=== PATIENT | male | born 1960 | race African-American/Black ===

== ENCOUNTER 2018-12-09 22:46 | Inpatient (IN) ==
[2018-12-09] MEDS ORDERED: SODIUM CHLORIDE 0.9% 250 ML IV PRN (22:55)
--- NOTE | 2018-12-09 22:59 | Emergency Department Note ---
ED Provider Note Name: Elissa Ennis Age: 57 M Arrives Via: EMS Informant: Pt, [facility] Info CC: Anemia HPI: 57 male arrives for evaluation of anemia. Patient notes for the last few days dark, sticky, red/black stool. Associated with nothing else. Per care home notes patient with SHOB on exertion though he denies this. Basic labs done at [facility] which revealed severe anemia. He was sent to ED for further evaluation. Denies fevers, chills, weakness, nausea, vomiting, headache, vision changes, lightheadedness, cp, sob, syncope, abdominal pain, back pain, leg swelling nor other symptoms. History of Hep C. Notes anemia last year of uncertain etiology. Is no longer on aspirin. Admits uses MOBIC twice daily for knee/back pain. Takes Blood pressure medication. No trauma, nor injuries. No new medications. Nothing makes better nor worse. Last year had unremarkable Endoscopy per patient. ROS: See above HPI for pertinent positives & negatives. A total of 10 systems reviewed and were otherwise negative. Past Medical History: Hep C, HTN, DLP, Depression, Constipation, GERD, Low Back Pain, Eczema Past Surgical History: Right hand surgery Family History: Denies history of bleeding issues. 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 Home Medications: FiberCon, Cetaphil, Colace, Lexapro, Hydrocholorothiazide, Hydroxyzine, meloxicam, pantoprazole Allergies NKDA Physical: Vitals: BP 158/76, P 85, R 18, O2 100%, Temp 36.8 Exam: GENERAL: Patient is well appearing and in no acute distress. EYES: Pale conjunctiva mild yellowing, No scleral icterus, unremarkable pupils. ENT: Mucous membranes moist, no nasal congestion. NECK: No masses appreciated, no meningismus, trachea is midline. RESPIRATORY: No dyspnea. Clear to auscultation and equal bilaterally. No wheeze, no rhonchi. CARDIOVASCULAR: Regular rate and rhythm. No murmurs, rubs, gallops appreciated. GASTROINTESTINAL: Abdomen soft, non-tender, no peritonitis. Bowel sounds positive. No masses appreciated. BACK: No midline tenderness, no CVA tenderness EXTREMITIES: Normal motion all extremities, no cyanosis, no edema. NEUROLOGIC: Alert and oriented, no acute motor or sensory deficits, no focal weakness, cranial nerves grossly intact. SKIN: Tattoed, No rash, no jaundice, no diaphoresis. ED Course: Prior Medical Record, Triage/Nursing Notes, Medications, Allergies reviewed by Me Vital Signs: reviewed and remarkable for HTN on arrival Labs: Reviewed and remarkable for severe anemia Interventions: saline lock, protonix bolus/gtt, 1 Unit PRBC EKG: Per My Interpretation: Indication Severe Anemia: NSR 74 bpm no ectopy no ischemia. QTC 432. There is no STEMI. No previous for comparison. Blood pressure: Elevated - Referred to Hospitalist Course: Arrived with [facility] guards via EMS, evaluated on arrival, labs ordered, PRBC ordered, patient admitted to Hospitalist Disposition: Hospitalization Differentials: GERD/PUD, Upper GI bleed, Lower GI Bleed, Liver Failure, Bone marrow failure, trauma, amongst other pathologies. Medical Decision Makin yr old male with history of anemia about a year ago thought to be GI related arrives for evaluation of anemia in setting of SOB on exertion. Admits black/bloody stools and with him being on Mobic assume this is Upper Source. Protonix started and given 1 U PRBC after consenting. HgB returned <4 with mild Trop elevation likely secondary to demand ischemia. No evidence STEMI on EKG. No abdominal pain nor TTP. No indication for imaging at this time. Not hypotensive at this time. Vitals stable, if not increasing throughout stay. Hospitalist involved for further management. Impression: Acute Blood Loss Anemia Acute Upper Gastrointestinal Bleeding Elevated Troponin Critical Care Time: I have personally spent greater than 40 minutes of critical care time in the direct management of this patient. Upper GI Bleed with Severe Anemia requiring blood transfusion. This was a life/limb threatening event. This includes time spent evaluating patient, direct bedside care, chart review, placing orders, interpretation of diagnostic studies, discussion with consultants and patient, as well as other required patient management activities. This 40 minutes is in excess of all separately billable procedures. 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 Feels Safe at Home: Yes Smoking Status: Current every day smoker Results & Data Vital Signs Vital Signs - 24 hr 12/09/18 22:49 12/09/18 22:53 12/09/18 23:10 Temperature 36.8 C Temperature Source Oral Sepsis Recent Fever Within 48 Hours No Sepsis Action Taken by Nursing No Action Required Pulse Rate 87 85 75 Pulse Rate from SpO2 Sensor 87 77 Respiratory Rate 21 18 16 Respiratory Effort / Characteristics Non-Labored Spontaneous Respiratory Depth Normal Respiratory Pattern Regular Blood Pressure 158/76 H 158/76 H 164/92 H Blood Pressure Mean 103 103 116 Blood Pressure Position Lying Pulse Oximetry 100 100 100 Oxygen Delivery Method Room Air 12/09/18 23:30 12/10/18 00:55 12/10/18 01:10 Temperature 36.6 C 36.7 C Temperature Source Oral Oral Sepsis Recent Fever Within 48 Hours Sepsis Action Taken by Nursing Pulse Rate 72 72 76 Pulse Rate from SpO2 Sensor 73 Respiratory Rate 16 18 18 Respiratory Effort / Characteristics Respiratory Depth Respiratory Pattern Blood Pressure 174/89 H 188/98 H 176/95 H Blood Pressure Mean 117 128 122 Blood Pressure Position Sitting Sitting Pulse Oximetry 100 100 100 Oxygen Delivery Method 12/10/18 01:25 Temperature 36.7 C Temperature Source Oral Sepsis Recent Fever Within 48 Hours Sepsis Action Taken by Nursing Pulse Rate 71 Pulse Rate from SpO2 Sensor Respiratory Rate 18 Respiratory Effort / Characteristics Respiratory Depth Respiratory Pattern Blood Pressure 189/101 H Blood Pressure Mean 130 Blood Pressure Position Sitting Pulse Oximetry 100 Oxygen Delivery Method Laboratory Data Result diagrams: 12/09/18 23:03 12/09/18 23:03 Lab Results 12/09/18 12/09/18 12/09/18 Range/Units 23:00 23:03 23:03 WBC 5.13 (4.8-10.8) K/uL RBC 2.35 L (4.7-6.1) M/uL Hgb 3.8 L* (14.0-18.0) g/dL Hct 14.5 L* (42-52) % MCV 61.7 L (80-100) fL MCH 16.2 L (25-34) pg MCHC 26.2 L (32-36) g/dL Plt Count 236 (130-400) K/uL Immature Gran % (Auto) 0.8 % Neut % (Auto) 53.8 % Lymph % (Auto) 32.9 % [place] % (Auto) 9.2 % Eos % (Auto) 1.9 % Baso % (Auto) 1.4 % Immature Gran # (Auto) 0.04 H (0.00-0.02) K/uL Neut # (Auto) 2.76 (1.4-6.5) K/uL Lymph # (Auto) 1.69 (1.2-3.4) K/uL [place] # (Auto) 0.47 (0.11-0.59) K/uL Eos # (Auto) 0.10 (0-0.5) K/uL Baso # (Auto) 0.07 (0-0.2) K/uL Absolute Nucleated RBC 0.07 H (0-0) K/uL Nucleated RBC % (auto) 1.4 % Giant Platelets 2+ Hypochromasia Present Poikilocytosis Present Microcytosis Present Target Cells 2+ Tear Drop Cells 1+ PT 11.9 (9.0-12.0) Seconds INR 1.2 H (0.9-1.1) APTT 23.1 (21.0-31.0) Seconds PTT Ratio 0.9 Sodium (136-145) mmol/L Potassium (3.5-5.1) mmol/L Chloride (98-107) mmol/L Carbon Dioxide (21-32) mmol/L Anion Gap (3-11) BUN (7-18) mg/dl Creatinine (0.6-1.4) mg/dl Est Cr Clr Drug Dosing ml/min Est GFR ( Amer) Est GFR (Non-Af Amer) BUN/Creatinine Ratio (10-20) Glucose (70-99) mg/dl Calcium (8.5-10.1) mg/dl Magnesium (1.8-2.4) mg/dl Total Bilirubin (0.2-1) mg/dl Direct Bilirubin (0-0.2) mg/dl AST (15-37) U/L ALT (12-78) U/L Alkaline Phosphatase (45-117) U/L Troponin I (0-0.045) ng/ml Total Protein (6.4-8.2) gm/dl Albumin (3.4-5.0) gm/dl Urine Color Yellow Urine Appearance Clear (Clear) Urine pH 6.0 (4.5-7.5) Ur Specific [place] 1.007 (1.000-1.030) Urine Protein Negative (Negative) Urine Glucose (UA) Negative (Negative) Urine Ketones Negative (Negative) Urine Blood Negative (Negative) Urine Nitrite Negative (Negative) Urine Bilirubin Negative (Negative) Urine Urobilinogen Negative (Negative) Ur Leukocyte Esterase Negative (Negative) Blood Type Antibody Screen Crossmatch 12/09/18 12/09/18 Range/Units 23:03 23:03 WBC (4.8-10.8) K/uL RBC (4.7-6.1) M/uL Hgb (14.0-18.0) g/dL Hct (42-52) % MCV (80-100) fL MCH (25-34) pg MCHC (32-36) g/dL Plt Count (130-400) K/uL Immature Gran % (Auto) % Neut % (Auto) % Lymph % (Auto) % [place] % (Auto) % Eos % (Auto) % Baso % (Auto) % Immature Gran # (Auto) (0.00-0.02) K/uL Neut # (Auto) (1.4-6.5) K/uL Lymph # (Auto) (1.2-3.4) K/uL [place] # (Auto) (0.11-0.59) K/uL Eos # (Auto) (0-0.5) K/uL Baso # (Auto) (0-0.2) K/uL Absolute Nucleated RBC (0-0) K/uL Nucleated RBC % (auto) % Giant Platelets Hypochromasia Poikilocytosis Microcytosis Target Cells Tear Drop Cells PT (9.0-12.0) Seconds INR (0.9-1.1) APTT (21.0-31.0) Seconds PTT Ratio Sodium 143 (136-145) mmol/L Potassium 3.4 L (3.5-5.1) mmol/L Chloride 112 H (98-107) mmol/L Carbon Dioxide 24 (21-32) mmol/L Anion Gap 6.0 (3-11) BUN 11 (7-18) mg/dl Creatinine 1.13 (0.6-1.4) mg/dl Est Cr Clr Drug Dosing 82.5 ml/min Est GFR ( Amer) 83.8 Est GFR (Non-Af Amer) 72.3 BUN/Creatinine Ratio 9.5 L (10-20) Glucose 109 H (70-99) mg/dl Calcium 8.4 L (8.5-10.1) mg/dl Magnesium 2.0 (1.8-2.4) mg/dl Total Bilirubin 0.6 (0.2-1) mg/dl Direct Bilirubin 0.2 (0-0.2) mg/dl AST 88 H (15-37) U/L ALT 33 (12-78) U/L Alkaline Phosphatase 76 (45-117) U/L Troponin I 0.053 H* (0-0.045) ng/ml Total Protein 6.3 L (6.4-8.2) gm/dl Albumin 3.3 L (3.4-5.0) gm/dl Urine Color Urine Appearance (Clear) Urine pH (4.5-7.5) Ur Specific [place] (1.000-1.030) Urine Protein (Negative) Urine Glucose (UA) (Negative) Urine Ketones (Negative) Urine Blood (Negative) Urine Nitrite (Negative) Urine Bilirubin (Negative) Urine Urobilinogen (Negative) Ur Leukocyte Esterase (Negative) Blood Type O Positive Antibody Screen NEGATIVE Crossmatch See Detail Administered Medications Hydralazine HCl (Hydralazine Hcl) 10 mg IV Q4H PRN PRN Reason: Systolic BP > 160 or diastolic >95 Stop: 01/09/19 01:53 Last Admin: 12/10/18 01:58 Dose: 10 mg Documented by: [id number] Sodium Chloride (Nss) 250 mls @ 15 mls/hr IV .[id number] PRN PRN Reason: For Transfusion Stop: 01/08/19 22:54 Last Admin: 12/10/18 01:20 Dose: 15 mls/hr Documented by: [id number] Pantoprazole Sodium 40 mg/ (Dextrose) 100 mls @ 20 mls/hr IV Q5H SOC[place] Stop: 12/10/18 04:59 Last Admin: 12/10/18 00:21 Dose: 20 mls/hr Documented by: [id number] Discontinued Medications Pantoprazole Sodium 80 mg/ (Dextrose) 120 mls @ 480 mls/hr IV NOW STA Stop: 10/12/19 00:07 Last Infusion: 12/10/18 00:19 Dose: 0 mls/hr Documented by: [id number] Admin: 12/10/18 00:05 Dose: 480 mls/hr Documented by: [id number] Discharge Plan Visit Data Chief Complaint: Abnormal Labs/Diagnostic Testing Stated Complaint: ABNORMAL LABS, BLOODY STOOL ED Provider: Mac Williamson Discharge Problem: Acute blood loss anemia, Acute upper gastrointestinal bleeding, Elevated troponin Discharge Instructions Interventions: ED Discharge Assessment Last Done: 12/10/18 02:43
[2018-12-09 23:27] LABS: Appearance Urine Clear (Clear); Bilirubin Urine Negative (Negative); Blood Urine Negative (Negative); Color Urine Yellow; Glucose Urine UA Negative (Negative); Ketones Urine Negative (Negative); Leukocyte Esterase Urine Negative (Negative); Nitrite Urine Negative (Negative); Protein Urine Negative (Negative); Specific Gravity Urine 1.007 (1.000-1.030); Urobilinogen Urine Negative (Negative)
[2018-12-09 23:30] LABS: INR 1.2 (0.9-1.1); Partial Thromboplastin Ratio 0.9; Partial Thromboplastin Time 23.1 Seconds (21.0-31.0); Prothrombin Time 11.9 Seconds (9.0-12.0)
[2018-12-09 23:34] LABS: Albumin Level 3.3 gm/dl (3.4-5.0); BUN Creatinine Ratio 9.5 (10-20); Bilirubin Direct 0.2 mg/dl (0-0.2); Calcium 8.4 mg/dl (8.5-10.1); Creatinine Clr Calc Pharmacy 82.5 ml/min; Est GFR (African American) 83.8; Est GFR (Non-African American) 72.3; Potassium 3.4 mmol/L (3.5-5.1)
[2018-12-09] MEDS ORDERED: PANTOprazole 80 MG in DEXTROSE 5% 100 ML IV STA (23:53)
[2018-12-10 00:06] LABS: Bilirubin,Total 0.6 mg/dl (0.2-1); Total Protein 6.3 gm/dl (6.4-8.2)
[2018-12-10 00:08] LABS: Troponin I 0.053 ng/ml (0-0.045)
[2018-12-10 00:12] LABS: Hematocrit (blood only) 14.5 % (42-52); Hemoglobin 3.8 g/dL (14.0-18.0); Mean Corpuscular Hemoglobin 16.2 pg (25-34); Mean Corpuscular Hgb Conc 26.2 g/dL (32-36); Mean Corpuscular Volume 61.7 fL (80-100); Nucleated RBC # (auto) 0.07 K/uL (0-0); Nucleated RBC % (auto) 1.4 %; Platelet Count 236 K/uL (130-400); Red Blood Count 2.35 M/uL (4.7-6.1); White Blood Count 5.13 K/uL (4.8-10.8)
[2018-12-10] MEDS: PANTOprazole 40 MG in DEXTROSE 5% 100 ML IV SCH ×3 (00:21→10:13)
[2018-12-10 00:47] LABS: Basophils # (auto) 0.07 K/uL (0-0.2); Basophils % (auto) 1.4 %; Eosinophils % (auto) 1.9 %; Giant Platelets 2+; Hypochromasia Present; Immature Granulocytes # (auto) 0.04 K/uL (0.00-0.02); Immature Granulocytes % (auto) 0.8 %; Lymphocytes # (auto) 1.69 K/uL (1.2-3.4); Lymphocytes % (auto) 32.9 %; Microcytosis Present; Monocytes # (auto) 0.47 K/uL (0.11-0.59); Monocytes % (auto) 9.2 %; Neutrophils # (auto) 2.76 K/uL (1.4-6.5); Neutrophils % (auto) 53.8 %; Poikilocytosis Present; Target Cells 2+; Tear Drop Cells 1+
[2018-12-10] MEDS: HydrALAZINE HCL 20 MG/ML VIAL IV PRN ×3 (01:58→16:06)
--- NOTE | 2018-12-10 02:30 | History & Physical Report ---
Date of Service December 10, 2018 Assessment & Plan (1) Anemia: Admit to tele Plan to give total of 3 units PRBCs check HGB following transfusions DVT prophyalxis = SCDs, holding pharmacologic due to anemia and bleed. Protonix 40mg increased to BID IV dose given in the ED. (2) Blood per rectum: GI consult (3) HTN (hypertension): Continue HCTZ prn Hydralazine. (4) GERD (gastroesophageal reflux disease): Pantoprazole (5) Constipation: Takes Colace and FiberCon daily (6) DJD (degenerative joint disease) of knee: Holding Meloxicam Added tramadol instead. History of Present Illness 57 y/o male presented to the ED with a 3 day history of bright red blood per rectum. Although the notes from the correction mention black stools and exertional SOB, the patient declines having these. He does use Mobic twice daily for joint pains. No F/C, cough, chest pain, SOB, weakness, N/V/D, hematemesis, or epistaxis. No trauma. No new medications. Primary Care Provider: HENRY Camargo Allergies Allergy/AdvReac Type Severity Reaction Status Date / Time No Known Allergies Allergy Verified 12/30/18 11:59 Home Medications Home Medications Medication Instructions Recorded Confirmed Type Cetaphil 1 applic TOPICAL BID 01/10/18 12/30/18 History calcium polycarbophil [FiberCon] 1,250 mg PO QAM 01/10/18 12/30/18 History docusate sodium [Colace] 100 mg PO QAM 01/10/18 12/30/18 History escitalopram oxalate [Lexapro] 30 mg PO HS 01/10/18 12/30/18 History hydrochlorothiazide 25 mg PO QAM 01/10/18 12/30/18 History pantoprazole 40 mg PO DAILY #20 tab 01/10/18 12/30/18 Rx hydroxyzine pamoate 25 mg PO HS 12/10/18 12/30/18 History lisinopril 10 mg PO QAM 30 Days #30 tab 12/13/18 12/30/18 Rx acetaminophen 500 mg/15 mL oral 500 mg PO QID PRN 12/30/18 12/30/18 History liquid emollient combination no.40 lotion ea TOP gm 12/30/18 12/30/18 History prednisone 10 mg tablet See Rx Instructions PO DAILY #126 12/30/18 12/30/18 Rx tab Past Med/Surg History Medical History Anemia Constipation DJD (degenerative joint disease) of knee GERD (gastroesophageal reflux disease) HTN (hypertension) Hepatitis C No known health problems Surgical History History of esophagogastroduodenoscopy (EGD) Family History Other No significant family history Social History Preferred Language: Pashto Beliefs That Will Affect Care: None Current Living Situation: Other Current Living Situation Comment: 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 Lungs- clear to auscultation b/l no R/R/W. Heart- regular rhythm; no murmur, no gallop, no rub appreciated Abdomen- normal bowel sounds, soft, nontender. Extremities- no pretibial edema, no calf tenderness; peripheral pulses intact Neuro- alert, oriented x 3; PERRL, EOMI; engineering operator II-XII grossly intact, non-focal. Skin- warm & dry Results & Data Vital Signs (Past 12 Hours) Vital Signs Temp Pulse Resp BP Pulse Ox 12/10/18 01:55 36.8 C 73 18 204/102 H 100 12/10/18 01:25 36.7 C 71 18 189/101 H 100 12/10/18 01:10 36.7 C 76 18 176/95 H 100 12/10/18 00:55 36.6 C 72 18 188/98 H 100 12/09/18 23:30 72 16 174/89 H 100 12/09/18 23:10 75 16 164/92 H 100 12/09/18 22:53 36.8 C 85 18 158/76 H 100 12/09/18 22:49 87 21 158/76 H 100 Laboratory Results Laboratory Results WBC 5.13 K/uL (4.8-10.8) 12/09/18 23:03 RBC 2.35 M/uL (4.7-6.1) L 12/09/18 23:03 Hgb 3.8 g/dL (14.0-18.0) L* 12/09/18 23:03 Hct 14.5 % (42-52) L* 12/09/18 23:03 MCV 61.7 fL (80-100) L 12/09/18 23:03 MCH 16.2 pg (25-34) L 12/09/18 23:03 MCHC 26.2 g/dL (32-36) L 12/09/18 23:03 Plt Count 236 K/uL (130-400) 12/09/18 23:03 Immature Gran % (Auto) 0.8 % 12/09/18 23:03 Neut % (Auto) 53.8 % 12/09/18 23:03 Lymph % (Auto) 32.9 % 12/09/18 23:03 [place] % (Auto) 9.2 % 12/09/18 23:03 Eos % (Auto) 1.9 % 12/09/18 23:03 Baso % (Auto) 1.4 % 12/09/18 23:03 Immature Gran # (Auto) 0.04 K/uL (0.00-0.02) H 12/09/18 23:03 Neut # (Auto) 2.76 K/uL (1.4-6.5) 12/09/18 23:03 Lymph # (Auto) 1.69 K/uL (1.2-3.4) 12/09/18 23:03 [place] # (Auto) 0.47 K/uL (0.11-0.59) 12/09/18 23:03 Eos # (Auto) 0.10 K/uL (0-0.5) 12/09/18 23:03 Baso # (Auto) 0.07 K/uL (0-0.2) 12/09/18 23:03 Absolute Nucleated RBC 0.07 K/uL (0-0) H 12/09/18 23:03 Nucleated RBC % (auto) 1.4 % 12/09/18 23:03 Giant Platelets 2+ 12/09/18 23:03 Hypochromasia Present 12/09/18 23:03 Poikilocytosis Present 12/09/18 23:03 Microcytosis Present 12/09/18 23:03 Target Cells 2+ 12/09/18 23:03 Tear Drop Cells 1+ 12/09/18 23:03 PT 11.9 Seconds (9.0-12.0) 12/09/18 23:03 INR 1.2 (0.9-1.1) H 12/09/18 23:03 APTT 23.1 Seconds (21.0-31.0) 12/09/18 23:03 PTT Ratio 0.9 12/09/18 23:03 Sodium 143 mmol/L (136-145) 12/09/18 23:03 Potassium 3.4 mmol/L (3.5-5.1) L 12/09/18 23:03 Chloride 112 mmol/L (98-107) H 12/09/18 23:03 Carbon Dioxide 24 mmol/L (21-32) 12/09/18 23:03 Anion Gap 6.0 (3-11) 12/09/18 23:03 BUN 11 mg/dl (7-18) 12/09/18 23:03 Creatinine 1.13 mg/dl (0.6-1.4) 12/09/18 23:03 Est Cr Clr Drug Dosing 82.5 ml/min 12/09/18 23:03 Est GFR ( Amer) 83.8 12/09/18 23:03 Est GFR (Non-Af Amer) 72.3 12/09/18 23:03 BUN/Creatinine Ratio 9.5 (10-20) L 12/09/18 23:03 Glucose 109 mg/dl (70-99) H 12/09/18 23:03 Calcium 8.4 mg/dl (8.5-10.1) L 12/09/18 23:03 Magnesium 2.0 mg/dl (1.8-2.4) 12/09/18 23:03 Total Bilirubin 0.6 mg/dl (0.2-1) 12/09/18 23:03 Direct Bilirubin 0.2 mg/dl (0-0.2) 12/09/18 23:03 AST 88 U/L (15-37) H 12/09/18 23:03 ALT 33 U/L (12-78) 12/09/18 23:03 Alkaline Phosphatase 76 U/L (45-117) 12/09/18 23:03 Troponin I 0.053 ng/ml (0-0.045) H* 12/09/18 23:03 Total Protein 6.3 gm/dl (6.4-8.2) L 12/09/18 23:03 Albumin 3.3 gm/dl (3.4-5.0) L 12/09/18 23:03 Urine Color Yellow 12/09/18 23:00 Urine Appearance Clear (Clear) 12/09/18 23:00 Urine pH 6.0 (4.5-7.5) 12/09/18 23:00 Ur Specific [place] 1.007 (1.000-1.030) 12/09/18 23:00 Urine Protein Negative (Negative) 12/09/18 23:00 Urine Glucose (UA) Negative (Negative) 12/09/18 23:00 Urine Ketones Negative (Negative) 12/09/18 23:00 Urine Blood Negative (Negative) 12/09/18 23:00 Urine Nitrite Negative (Negative) 12/09/18 23:00 Urine Bilirubin Negative (Negative) 12/09/18 23:00 Urine Urobilinogen Negative (Negative) 12/09/18 23:00 Ur Leukocyte Esterase Negative (Negative) 12/09/18 23:00 Blood Type O Positive 12/09/18: Antibody Screen NEGATIVE 12/09/18 23: Crossmatch See Detail 12/09/18: Code Status & VTE Plan VTE Prophylaxis Plan VTE Prophylaxis will be ordered: Yes PG Care Time/CCT Total # of Minutes Spent Total Time Spent: 45 Total Time Spent with Patient: Total time spent is greater than 50% in coordination of care (as documented) at patient's floor/unit and/or counseling patient:
[2018-12-10] MEDS ORDERED: SODIUM CHLORIDE 0.9% 250 ML IV PRN ×2 (03:22→08:01)
[2018-12-10] MEDS ORDERED: ONDANSETRON INJ 2 MG/ML 2 ML VIAL IV PRN ×2 (03:22→14:25)
[2018-12-10] MEDS: ESCITALOPRAM OXALATE 10 MG TAB PO SCH ×2 (03:58→21:06)
[2018-12-10 07:16] LABS: Hematocrit (blood only) 17.8 % (42-52); Hemoglobin 5.2 g/dL (14.0-18.0); Mean Corpuscular Hgb Conc 29.2 g/dL (32-36); Mean Corpuscular Volume 68.5 fL (80-100); Nucleated RBC # (auto) 0.05 K/uL (0-0); Nucleated RBC % (auto) 1.1 %; Platelet Count 196 K/uL (130-400); White Blood Count 4.69 K/uL (4.8-10.8)
[2018-12-10 08:01] LABS: BUN Creatinine Ratio 8.4 (10-20); Calcium 7.8 mg/dl (8.5-10.1); Creatinine Clr Calc Pharmacy 96.4 ml/min; Potassium 3.1 mmol/L (3.5-5.1)
[2018-12-10 08:56] LABS: Ferritin 2.7 ng/ml (8-388)
[2018-12-10] MEDS: hydroCHLOROthiazide 25 MG TAB PO SCH (09:47)
[2018-12-10] MEDS: DOCUSATE SODIUM 100 MG CAP PO SCH (09:47)
[2018-12-10] MEDS: POTASSIUM CHLORIDE / WTR 10 MEQ/100 ML PLCT IV SCH ×2 (09:47→11:31)
[2018-12-10] MEDS: CALCIUM POLYCARBOPHIL 625MG TAB PO SCH (09:47)
[2018-12-10] MEDS: POTASSIUM CHLORIDE 20 MEQ TABCR PO SCH ×3 (09:48→21:04)
[2018-12-10] MEDS: EUCERIN CR 120 GM JAR TOP SCH ×2 (10:14→21:03)
--- NOTE | 2018-12-10 10:56 | Gastrointestinal Consultation ---
Date of Consultation December 10, 2018 Assessment & Plan (1) Acute blood loss anemia: (2) Acute upper gastrointestinal bleeding: (3) Blood per rectum: Continue protonix gtt at 8 mg/hr Transfuse PRN to maintain H/H around 8/24 Will proceed with Emergent EGD today at 2 PM, this will allow patient to receive 3 u PRBC and repeat H/H following to ensure he does not need further resucitation prior to procedure. Further recommendations to follow History of Present Illness Reason for Consultation: Acute blood loss anemia, Hematochezia Attending Physician: Jerad Lowry History of Present Illness Elissa Ennis presented to the ER last evening with complaints of 2 week history of bright red rectal bleeding. He states that he had bloodwork done at the custodial and was subsequently transferred to [facility] ER. Upon arrival to the ER, he was noted to have a Hgb of 3.8. He states that he has not had any abdominal pain, but does admit to taking Mobic twice daily for chronic back pain. He does have a history of Hepatitis C, but states he has never been told he has cirrhosis. Per the patient he had a colonoscopy last year for rectal bleeding at [facility], however, I do not have these records at present. He denies any recent weight loss, fevers, chills, nausea, vomiting, hematemesis, melena or other complaints. He is receiving his 3rd unit of PRBC, and is currently on a prontonix gtt. Nursing reports he has been hemodynamically stable throughout his hospitalization. Allergies Allergy/AdvReac Type Severity Reaction Status Date / Time No Known Allergies Allergy Unverified 12/10/18 00:15 Home Medications Home Medications Medication Instructions Recorded Confirmed Type calcium polycarbophil [FiberCon] 1,250 mg PO QAM 01/10/18 12/10/18 History cetyl,stear.alcoh-prop gly-sls 1 applic TOPICAL BID 01/10/18 12/10/18 History [Cetaphil] docusate sodium [Colace] 100 mg PO QAM 01/10/18 12/10/18 History escitalopram oxalate [Lexapro] 30 mg PO HS 01/10/18 12/10/18 History hydrochlorothiazide 25 mg PO QAM 01/10/18 12/10/18 History pantoprazole 40 mg PO DAILY #20 tab 01/10/18 12/10/18 Rx hydroxyzine pamoate 25 mg PO HS 12/10/18 12/10/18 History meloxicam 7.5 mg PO BID 12/10/18 12/10/18 History Patient History Medical History Constipation DJD (degenerative joint disease) of knee GERD (gastroesophageal reflux disease) HTN (hypertension) No known health problems Family History Other No significant family history Social History Preferred Language: Upper Sorbian Beliefs That Will Affect Care: None Current Living Situation: Other Current Living Situation Comment: 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 Feels Safe at Home: No Smoking Status: Former smoker Hx Alcohol Use: No Hx Substance Use: Yes substance use type: marijuana Substance Use Type Other:: smoked PCP Review of Systems Review of Systems: All systems reviewed & are unremarkable except as noted in HPI & below Physical Exam Constitutional: WD/WN, vitals as above Respiratory: normal respiratory effort, lungs clear to auscultation Cardiovascular: RRR, no murmur, no edema Gastrointestinal (Abdomen): normal bowel sounds, soft, nontender, no hepatosplenomegaly Psychiatric: A+Ox3, euthymic affect Results & Data Vital Signs (Past 12 Hours) Vital Signs Temp Pulse Pulse Resp BP BP Pulse Ox 12/10/18 09:50 36.8 C 70 16 178/98 H 100 12/10/18 09:34 36.8 C 70 20 186/96 H 100 12/10/18 07:06 36.9 C 73 18 175/95 H 99 12/10/18 05:00 79 185/94 H 12/10/18 04:30 70 189/101 H 12/10/18 04:15 74 193/100 H 12/10/18 04:00 76 176/95 H 12/10/18 03:47 73 100 12/10/18 03:10 36.8 C 18 188/88 H 100 12/10/18 02:45 36.9 C 80 16 193/90 H 100 12/10/18 02:43 80 16 193/90 H 100 12/10/18 01:55 36.8 C 73 18 204/102 H 100 12/10/18 01:25 36.7 C 71 18 189/101 H 100 12/10/18 01:10 36.7 C 76 18 176/95 H 100 12/10/18 00:55 36.6 C 72 18 188/98 H 100 12/09/18 23:30 72 16 174/89 H 100 12/09/18 23:10 75 16 164/92 H 100 12/09/18 22:53 36.8 C 85 18 158/76 H 100 12/09/18 22:49 87 21 158/76 H 100 PG Care Time/CCT Total # of Minutes Spent Total Time Spent with Patient: Total time spent is greater than 50% in coordination of care (as documented) at patient's floor/unit and/or counseling patient:
--- NOTE | 2018-12-10 11:27 | Anesthesiology Consultation ---
Date of Service December 10, 2018 Assessment & Plan (1) Encounter for pre-operative examination: Chart Review Chart Review: Acceptable Risk for Surgery Consults Requested none ASA ASA4 Proposed Anesthesia Anesthesia Type: MAC Risk / Benefits Reviewed With: PT / POA / Parent / Guardian, Accepts Plan and Informed Consent Obtained History Surgery Operation Date: 12/10/18 14:00 Proposed Procedures p Esophagogastroduodenoscopy - Macho G. Case, DO Height/Weight Height: 5 ft 9 in Weight: 92.2 kg Allergies Allergy/AdvReac Type Severity Reaction Status Date / Time No Known Allergies Allergy Unverified 12/10/18 00:15 Medications Home Medications Medication Instructions Recorded Confirmed Last Taken calcium polycarbophil [FiberCon] 1,250 mg PO QAM 01/10/18 12/10/18 01/10/18 cetyl,stear.alcoh-prop gly-sls 1 applic TOPICAL BID 01/10/18 12/10/18 01/10/18 [Cetaphil] docusate sodium [Colace] 100 mg PO QAM 01/10/18 12/10/18 01/10/18 escitalopram oxalate [Lexapro] 30 mg PO HS 01/10/18 12/10/18 01/09/18 hydrochlorothiazide 25 mg PO QAM 01/10/18 12/10/18 01/10/18 pantoprazole 40 mg PO DAILY #20 tab 01/10/18 12/10/18 Unknown hydroxyzine pamoate 25 mg PO HS 12/10/18 12/10/18 Unknown meloxicam 7.5 mg PO BID 12/10/18 12/10/18 Unknown Active Medications Generic Name Dose Route Start Last Admin Trade Name Freq PRN Reason Stop Dose Admin Calcium Polycarbophil 1,250 mg 12/10/18 09:00 12/10/18 09:47 Fibercon PO 01/09/19 08:59 1,250 mg QAM SOCORRO Administration Docusate Sodium 100 mg 12/10/18 09:00 12/10/18 09:47 Colace PO 01/09/19 08:59 100 mg QAM SOCORRO Administration Escitalopram Oxalate 30 mg 12/10/18 01:52 12/10/18 03:58 Lexapro Tab PO 01/09/19 01:51 Not Given HS SOCORRO Hydralazine HCl 10 mg 12/10/18 01:54 12/10/18 07:40 Hydralazine Hcl IV 01/09/19 01:53 10 mg Q4H PRN Administration Systolic BP > 160 or diastolic >95 Hydrochlorothiazide 25 mg 12/10/18 09:00 12/10/18 09:47 Hctz PO 01/09/19 08:59 25 mg QAM SOCORRO Administration Hydroxyzine HCl 25 mg 12/10/18 01:52 12/10/18 03:58 Vistaril PO 01/09/19 01:51 Not Given HS SOCORRO Multi-Ingredient Cream 1 appln 12/10/18 09:00 12/10/18 10:14 Hydrocerin TOP 01/09/19 08:59 1 appln BID SOCORRO Administration Potassium Chloride 20 meq 12/10/18 09:00 12/10/18 09:48 Klor-Con M20 PO 01/09/19 08:59 20 meq TID SOCORRO Administration NPO Date Last Intake of Fluids: 12/10/18 Time Last Intake of Fluids: 05:00 Date Last Intake of Solids: 12/10/18 Time Last Intake of Solids: 05:00 Last Intake of Solids Comment: crackers Past Medical History Medical History Anemia Constipation DJD (degenerative joint disease) of knee GERD (gastroesophageal reflux disease) HTN (hypertension) Hepatitis C No known health problems Exercise / Class Metabolic Activity II 4-5 Yardwork/Stairs/Walk up hill Past Family History Family History Other No significant family history Past Surgical History Surgical History History of esophagogastroduodenoscopy (EGD) Past Anesthesia History No Hx of Anesthesia Complications and No Family Hx of Anesthesia Complications History of PONV No Hx of PONV and No Hx of Motion Sickness Social History Smoking Status: Former smoker Hx Alcohol Use: No Hx Substance Use: Yes substance use type: marijuana Substance Use Type Other:: smoked PCP Last Used Substance Other:: over 4 years ago Physical Exam Vital Signs Last Vital Signs Temp 98.6 F 12/10/18 13:40 Pulse 66 12/10/18 13:40 Resp 16 12/10/18 13:40 BP 151/78 H 12/10/18 13:40 Pulse Ox 100 12/10/18 13:40 ENMT Mouth: no dentition abnormality Thyromental Distance: > or= 3.5 Finger Breadths Mallampati Class: I Neck normal visual inspection Respiratory normal respiratory effort Auscultation: lungs clear to auscultation bilaterally Cardiovascular Rate/Rhythm: regular rate and regular rhythm Testing Laboratory Results 12/10/18 06:59 12/10/18 06:59 PT 11.9 Seconds (9.0-12.0) 12/09/18 23:03 INR 1.2 (0.9-1.1) H 12/09/18 23:03 APTT 23.1 Seconds (21.0-31.0) 12/09/18 23:03 Urine Color Yellow 12/09/18 23:00 Urine Appearance Clear (Clear) 12/09/18 23:00 Urine pH 6.0 (4.5-7.5) 12/09/18 23:00 Ur Specific [place] 1.007 (1.000-1.030) 12/09/18 23:00 Urine Protein Negative (Negative) 12/09/18 23:00 Urine Glucose (UA) Negative (Negative) 12/09/18 23:00 Urine Ketones Negative (Negative) 12/09/18 23:00 Urine Nitrite Negative (Negative) 12/09/18 23:00 Ur Leukocyte Esterase Negative (Negative) 12/09/18 23:00 Blood Type O Positive 12/09/18 23:03 Antibody Screen NEGATIVE 12/09/18 23:03 Electrocardiogram Date: 12/09/18 Normal sinus rhythm, rate 74 bpm Cannot rule out Anterior infarct , age undetermined Abnormal ECG When compared with ECG of 10-JAN-2018 16:46, No significant change was found Chest X-Ray Date: 01/10/18 Findings: + NAD
[2018-12-10] MEDS ORDERED: LIDOCAINE HCL 2% 2 ML VIAL/AMP(20MG/ML) INFIL ONE (11:30)
[2018-12-10] MEDS ORDERED: PROPOFOL IV EMULSION 10 MG/ML 20 ML VIAL IV ONE (11:30)
[2018-12-10 14:15] LABS: Hematocrit (blood only) 23.1 % (42-52); Hemoglobin 6.9 g/dL (14.0-18.0)
[2018-12-10] MEDS ORDERED: ATROPINE SULFATE 0.1 MG/ML 10ML SYR IV PRN (14:25)
[2018-12-10] MEDS ORDERED: ePHEDrine sulfate 50 MG/ML AMP IV PRN (14:25)
[2018-12-10] MEDS ORDERED: fentaNYL citrate 100 MCG/2 ML VIAL IV PRN (14:25)
--- NOTE | 2018-12-10 14:47 | GI REPORT ---
Patient Name: Elissa Ennis Procedure Date: 12/10/2018 1:25 PM Date of : 1960 Admit Type: Inpatient Age: 57 Gender: Male Attending MD: Macho Alvarenga DO Procedure: Upper GI endoscopy Providers: Macho Alvarenga DO Referring MD: Raman FIGUEROA Indications: Acute post hemorrhagic anemia Medicines: Monitored Anesthesia Care Complications: No immediate complications. Estimated Blood Loss: Estimated blood loss: none. Procedure: Pre-Anesthesia Assessment: - Prior to the procedure, a History and Physical was performed, and patient medications and allergies were reviewed. The patient's tolerance of previous anesthesia was also reviewed. The risks and benefits of the procedure and the sedation options and risks were discussed with the patient. All questions were answered, and informed consent was obtained. Prior Anticoagulants: The patient has taken no previous anticoagulant or antiplatelet agents. ASA Grade Assessment: IV - A patient with severe systemic disease that is a constant threat to life. After reviewing the risks and benefits, the patient was deemed in satisfactory condition to undergo the procedure. After obtaining informed consent, the endoscope was passed under direct vision. Throughout the procedure, the patient's blood pressure, pulse, and oxygen saturations were monitored continuously. The Endoscope was introduced through the mouth, and advanced to the second part of duodenum. The upper GI endoscopy was accomplished without difficulty. The patient tolerated the procedure well. Findings: The esophagus was normal. The stomach was normal. The examined duodenum was normal. Impression: - Normal esophagus. - Normal stomach. - Normal examined duodenum. - No specimens collected. Recommendation: - Return patient to [facility] for [facility] care. - Clear liquid diet. - Continue present medications. - Perform a colonoscopy at appointment to be scheduled. Macho Alvarenga DO 12/10/2018 2:46:49 PM This report has been signed electronically. Note Initiated On: 12/10/2018 1:25 PM Number of Addenda: 0 I attest to the content of the Intraoperative Record and orders documented therein, exceptions below {[id number]}
--- NOTE | 2018-12-10 15:04 | Anesthesiology Progress Note ---
Date of Service December 10, 2018 Anesthesia Post Procedure Vital Signs Vital Signs: Temp Pulse Pulse Pulse Resp BP BP 12/10/18 14:55 71 16 12/10/18 14:48 98.2 F 70 19 12/10/18 13:40 98.6 F 66 16 151/78 H 12/10/18 12:55 98.2 F 67 18 192/93 H 12/10/18 12:25 98.6 F 74 16 174/96 H 12/10/18 12:10 98.2 F 68 16 174/99 H 12/10/18 11:55 98.1 F 68 19 178/93 H 12/10/18 11:31 98.2 F 67 178/93 H 12/10/18 10:35 98.1 F 62 20 167/68 H 12/10/18 10:15 98.2 F 73 20 178/98 H 12/10/18 09:50 98.2 F 70 16 178/98 H 12/10/18 09:34 98.2 F 70 20 186/96 H 12/10/18 07:06 98.4 F 73 18 175/95 H 12/10/18 05:00 79 185/94 H 12/10/18 04:30 70 189/101 H 12/10/18 04:15 74 193/100 H 12/10/18 04:00 76 176/95 H 12/10/18 03:47 73 12/10/18 03:10 98.2 F 18 188/88 H 12/10/18 02:45 98.4 F 80 16 193/90 H 12/10/18 02:43 80 16 193/90 H 12/10/18 01:55 98.2 F 73 18 204/102 H 12/10/18 01:25 98.1 F 71 18 189/101 H 12/10/18 01:10 98.1 F 76 18 176/95 H 12/10/18 00:55 97.9 F 72 18 188/98 H 12/09/18 23:30 72 16 174/89 H 12/09/18 23:10 75 16 164/92 H 12/09/18 22:53 98.2 F 85 18 158/76 H 12/09/18 22:49 87 21 158/76 H BP Pulse Ox 12/10/18 14:55 161/83 H 98 12/10/18 14:48 166/85 H 100 12/10/18 13:40 100 12/10/18 12:55 100 12/10/18 12:25 98 12/10/18 12:10 100 12/10/18 11:55 99 12/10/18 11:31 12/10/18 10:35 100 12/10/18 10:15 100 12/10/18 09:50 100 12/10/18 09:34 100 12/10/18 07:06 99 12/10/18 05:00 12/10/18 04:30 12/10/18 04:15 12/10/18 04:00 12/10/18 03:47 100 12/10/18 03:10 100 12/10/18 02:45 100 12/10/18 02:43 100 12/10/18 01:55 100 12/10/18 01:25 100 12/10/18 01:10 100 12/10/18 00:55 100 12/09/18 23:30 100 12/09/18 23:10 100 12/09/18 22:53 100 12/09/18 22:49 100 Transfer of Care Handoff Completed per policy Notes Mental Status: alert / awake / arousable and participated in evaluation Patient Amnestic to Procedure: Yes Nausea / Vomiting: adequately controlled Pain: adequately controlled Airway Patency, RR, SpO2: stable & adequate BP & HR: stable & adequate Hydration State: stable & adequate Anesthetic Complications: no major complications apparent and Pt Satisfied with anesthetic care
[2018-12-10 17:12] LABS: Folate (Folic Acid) 17.05 ng/ml (>5.38)
--- NOTE | 2018-12-10 19:36 | History & Physical Bridge Note ---
Date of Service December 10, 2018 History & Physical Bridge Note Repat Hb this am <6 -- thus gave 2 additional units PRBCs. Hb post-transfusion 6.9. NO symptoms thus defer on additional PRBCs. B12/folate wnl. Ferritin is 2 c/w severe, chronic iron deficiency. Plan for IV venofer tomorrow. EGD today w/o source of bleeding; completely normal. Colonoscopy planned for Wednesday. Pt states he had BRBPR for 1-2 weeks pre-hospitalization. No recent or past weight loss. VSS, no fever exam - gen - NAD skin - pallor heart - RRR lungs - CTA b/l abd - soft, NT, ND, BS+, no HSM ext - no edema Imp/plan: 1. severe iron deficiency anemia 2. acute /chronic anemia - obviously concern for occult GI blood loss over LONG period of time 3. elevated troponin - likely demand ischemia in setting of #1, #2 4. HTN - cont home meds 5. hypokalemia - replete, BMP am Jerad Lowry MD
[2018-12-10] MEDS: PANTOprazole 40 MG TAB PO SCH (21:07)
[2018-12-11] MEDS: HydrALAZINE HCL 20 MG/ML VIAL IV PRN ×2 (00:16→09:07)
[2018-12-11 06:30] LABS: Hematocrit (blood only) 24.6 % (42-52); Hemoglobin 7.4 g/dL (14.0-18.0); Mean Corpuscular Hemoglobin 21.1 pg (25-34); Mean Corpuscular Hgb Conc 30.1 g/dL (32-36); Mean Corpuscular Volume 70.3 fL (80-100); Nucleated RBC # (auto) 0.07 K/uL (0-0); Nucleated RBC % (auto) 1.2 %; Platelet Count 270 K/uL (130-400); RDW Coefficient of Variation 32.1 % (11.5-14.5); RDW Standard Deviation 82.1 fL (36.4-46.3); White Blood Count 5.83 K/uL (4.8-10.8)
[2018-12-11 07:15] LABS: BUN Creatinine Ratio 4.8 (10-20); Calcium 8.4 mg/dl (8.5-10.1); Creatinine Clr Calc Pharmacy 95.7 ml/min; Est GFR (African American) 104.6; Est GFR (Non-African American) 90.3; Potassium 3.4 mmol/L (3.5-5.1)
[2018-12-11] MEDS ORDERED: PANTOprazole 40 MG TAB PO SCH (09:00)
[2018-12-11] MEDS: EUCERIN CR 120 GM JAR TOP SCH ×2 (09:08→21:46)
[2018-12-11] MEDS: DOCUSATE SODIUM 100 MG CAP PO SCH (09:08)
[2018-12-11] MEDS: hydroCHLOROthiazide 25 MG TAB PO SCH (09:08)
[2018-12-11] MEDS: PANTOprazole 40 MG TAB PO SCH (09:08)
[2018-12-11] MEDS: CALCIUM POLYCARBOPHIL 625MG TAB PO SCH (09:08)
[2018-12-11] MEDS: POTASSIUM CHLORIDE 20 MEQ TABCR PO SCH ×3 (09:09→21:46)
[2018-12-11] MEDS ORDERED: IRON SUCROSE 200 MG in 0.9 % SODIUM CHLORIDE 100 ML IV SCH (10:15)
[2018-12-11] MEDS: ACETAMINOPHEN 325 MG TAB PO PRN (10:49)
--- NOTE | 2018-12-11 21:23 | Hospitalist Progress Note ---
Date of Service December 11, 2018 Assessment & Plan (1) Blood per rectum: Patient with chronic, severe, iron deficiency anemia. About 1-2 weeks prior to admission he had BRBPR. This was painless. He reports having had a normal colonoscopy about 1 year ago at [facility]. Thus, he has acute/chronic anemia. He is prepping tonight for colonoscopy in am by Dr Alvarenga. r/o IBD. r/o diverticulosis. r/o malignancy. r/o other causes. (2) Acute blood loss anemia: acute/chronic. s/p 4 units PRBCs this admission. H/H stable last 48 hours. CBC in am. Iron replacement. EGD yesterday wnl. Colonoscopy scheduled for tomorrow am. d/c PPI since EGD was completely normal. (3) Iron deficiency anemia: severe; ferritin of 2. work-up -- EGD without source. colonoscopy tomorrow. if colonoscopy is normal -- outpatient capsule endoscopy? iron replacement - venofer 200mg IV x 1. cbc in am. (4) HTN (hypertension): add amlodipine 5mg daily to his HCTZ (5) Abnormal AST and ALT: mild AST elevation follow (6) Hypokalemia: replace repeat BMP am (7) Mood disorder: cont home meds (8) DVT prophylaxis: low risk SCSs for now chemical means contraindicated Subjective patient w/o complaints. no abd pain. no BRBPR or melena. feeling fine. tolerating clears. tele stable overnight. Review of Systems Constitutional: no fatigue and no anorexia Respiratory: no dyspnea Cardiovascular: no chest pain Gastrointestinal: no abdominal pain, no nausea and no vomiting Physical Exam Constitutional: well developed and well nourished; no acute distress ENMT: external ear and nose normal, oropharynx normal Respiratory: normal respiratory effort, lungs clear to auscultation Cardiovascular: Rate/Rhythm: regular rate and regular rhythm Heart Sounds: normal S1 and normal S2; no murmur Vessels: posterior tibial pulses present and dorsalis pedis pulses present; no JVD Extremities: no edema Gastrointestinal (Abdomen): normal bowel sounds, soft, nontender, no hepatosplenomegaly Skin: + pallor Psychiatric: Orientation: alert and oriented x 3 Results & Data Vital Signs (Past 12 Hours) Vital Signs Temp Pulse Resp BP Pulse Ox 12/11/18 19:55 36.9 C 72 19 173/97 H 94 12/11/18 15:31 36.5 C 69 22 153/92 H 98 12/11/18 11:46 37.1 C 76 18 170/95 H 100 Laboratory Results Laboratory Results - last 24 hr 12/09/18 12/11/18 12/11/18 23:03 06:18 06:18 WBC 5.83 RBC 3.50 L Hgb 7.4 L Hct 24.6 L MCV 70.3 L MCH 21.1 L MCHC 30.1 L RDW Std Deviation 82.1 H RDW Coeff of Daniel 32.1 H Plt Count 270 Absolute Nucleated RBC 0.07 H Nucleated RBC % (auto) 1.2 Sodium 142 Potassium 3.4 L Chloride 113 H Carbon Dioxide 24 Anion Gap 5.0 BUN 5 L Creatinine 0.94 Est Cr Clr Drug Dosing 95.7 Est GFR ( Amer) 104.6 Est GFR (Non-Af Amer) 90.3 BUN/Creatinine Ratio 4.8 L Glucose 73 Calcium 8.4 L AST 76 H Crossmatch See Detail PG Care Time/CCT Total # of Minutes Spent Total Time Spent with Patient: Total time spent is greater than 50% in coordination of care (as documented) at patient's floor/unit and/or counseling patient: (1) HTN (hypertension) Hypertension type: essential hypertension Qualified Code(s): I10 - Essential (primary) hypertension (2) Iron deficiency anemia Iron deficiency anemia type: unspecified iron deficiency Qualified Code(s): D50.9 - Iron deficiency anemia, unspecified
[2018-12-11] MEDS: ESCITALOPRAM OXALATE 10 MG TAB PO SCH (21:48)
[2018-12-11] MEDS ORDERED: LAVAGE SOLUTION 4000ML PO SCH (22:00)
[2018-12-12] MEDS: HydrALAZINE HCL 20 MG/ML VIAL IV PRN ×2 (00:51→11:23)
[2018-12-12] MEDS: ACETAMINOPHEN 325 MG TAB PO PRN (03:12)
[2018-12-12 07:16] LABS: Hemoglobin 8.7 g/dL (14.0-18.0); Mean Corpuscular Hemoglobin 20.9 pg (25-34); Mean Corpuscular Volume 69.7 fL (80-100); Nucleated RBC # (auto) 0.23 K/uL (0-0); Nucleated RBC % (auto) 2.4 %; Platelet Count 404 K/uL (130-400); RDW Standard Deviation 81.8 fL (36.4-46.3); Red Blood Count 4.16 M/uL (4.7-6.1); White Blood Count 9.33 K/uL (4.8-10.8)
[2018-12-12] MEDS: DOCUSATE SODIUM 100 MG CAP PO SCH (07:46)
[2018-12-12] MEDS: hydroCHLOROthiazide 25 MG TAB PO SCH (07:47)
[2018-12-12] MEDS: POTASSIUM CHLORIDE 20 MEQ TABCR PO SCH ×3 (07:47→19:50)
[2018-12-12] MEDS: EUCERIN CR 120 GM JAR TOP SCH ×2 (07:47→19:47)
[2018-12-12] MEDS: CALCIUM POLYCARBOPHIL 625MG TAB PO SCH (07:47)
[2018-12-12 07:48] LABS: BUN Creatinine Ratio 4.5 (10-20); Calcium 9.2 mg/dl (8.5-10.1); Creatinine Clr Calc Pharmacy 89.9 ml/min; Est GFR (African American) 97.1; Est GFR (Non-African American) 83.8; Potassium 3.6 mmol/L (3.5-5.1)
--- NOTE | 2018-12-12 09:10 | History & Physical Bridge Note ---
Date of Service December 12, 2018 History & Physical Bridge Note I have examined the patient, reviewed the History & Physical and in the interval since the performance of the History & Physical I have noted the following changes of clinical significance: no changes noted Patient reports he has completed the bowel preparation and is passing liquid stools only. No abd pain, n/v or overt GIB sx. PE: A&Ox3. Vital signs stable. RRR without M/R/G. Lungs CTA bilaterally. Abdomen soft, nontender. Normal bowel sounds. No pedal edema. A/P: Patient with profound anemia status post EGD for colonoscopy with Dr. Alvarenga today. Supervising Physician Co-Signing Physician Notes Agree with Pavithra Morin Abd: Soft, NT, ND, +BS Continue current therapy Proceed with colonoscopy today
[2018-12-12] MEDS: PANTOprazole 40 MG TAB PO SCH (10:10)
--- NOTE | 2018-12-12 10:27 | Hospitalist Progress Note ---
Date of Service December 12, 2018 Assessment & Plan (1) Blood per rectum: Chronic, severe, iron deficiency anemia. 1-2 weeks painless bright red blood per rectum Plan for colonoscopy today (2) Acute blood loss anemia: s/p 4 units PRBCs this admission. H/H stable EGD (12/10) wnl. Colonoscopy today (3) Iron deficiency anemia: severe; ferritin of 2. work-up as above. s/p x4 packed RBCs, Hgb now 8.7. Would recommend total IV 1000mg elemental iron to replete stores - can be completed as outpatient. Venofer 200mg IV x 1 given 12/11 (4) HTN (hypertension): Added lisinopril to HCTZ, should also help with hypokalemia. Consider switching HCTZ to amlodipine as outpatient if having continued hypokalemia. (5) Abnormal AST and ALT: Mild AST elevation. Repeat LFTs in AM Recommend outpatient follow up. Plt unremarkable. No liver abnormalities on CT A/P. (6) Hypokalemia: Secondary to HCTZ, GI bleed Consider primary aldosteronism if unable to control BP on three meds. No adrenal incidentaloma on CT. Continue supplements as needed, added ACEi to HTN meds to assist. (7) Mood disorder: cont home meds (8) DVT prophylaxis: SCDs chemical prophylaxis contraindicated given admission for severe anemia with GI bleed. Subjective Patient appears comfortable in bed. No complaints or concerns at this time. Does admit to some shortness of breath on exertion prior to admission when walking up stairs but put this down to his back. Otherwise no prior symptoms. No current chest pain, shortness of breath or dizziness. No abdominal pain, rectal bleeding or melena. Review of Systems Review of Systems: All systems reviewed & are unremarkable except as noted in HPI & below Physical Exam Constitutional: well developed and well nourished; no acute distress Eyes: PERRL, conjunctivae normal, anicteric sclerae ENMT: external ear and nose normal, oropharynx normal Respiratory: normal respiratory effort, lungs clear to auscultation Cardiovascular: Rate/Rhythm: regular rate and regular rhythm Heart Sounds: normal S1 and normal S2; no murmur Vessels: no JVD Extremities: no edema Gastrointestinal (Abdomen): normal bowel sounds, soft, nontender, no hepatosplenomegaly Musculoskeletal: no cyanosis or clubbing, extremities motor strength 5/5 (calves SNT) Skin: + pallor Neurologic: awake; no focal motor deficits Motor/Sensory: no tremor and no pronator drift Psychiatric: Orientation: alert and oriented x 3 Results & Data Vital Signs (Past 12 Hours) Vital Signs Temp Pulse Pulse Resp BP Pulse Ox Pulse Ox 12/12/18 08:33 82 124/93 12/12/18 07:59 98.2 F 78 20 171/88 H 98 12/12/18 03:22 98.6 F 95 H 18 152/95 H 99 12/12/18 03:00 95 12/12/18 01:00 71 12/11/18 23:27 98.2 F 71 18 169/105 H 99 PG Care Time/CCT Total # of Minutes Spent Total Time Spent with Patient: Total time spent is greater than 50% in coordina tion of care (as documented) at patient's floor/unit and/or counseling patient: (1) Iron deficiency anemia Iron deficiency anemia type: unspecified iron deficiency Qualified Code(s): D50.9 - Iron deficiency anemia, unspecified (2) HTN (hypertension) Hypertension type: essential hypertension Qualified Code(s): I10 - Essential (primary) hypertension
[2018-12-12] MEDS: LACTATED RINGER'S 1,000 ML IV SCH (11:11)
--- NOTE | 2018-12-12 16:06 | Anesthesiology Consultation ---
Date of Service December 12, 2018 Assessment & Plan (1) Encounter for pre-operative examination: Chart Review Chart Review: Acceptable Risk for Surgery and Patient NOT seen in Pre Admission Testing Consults Requested none ASA ASA3 Proposed Anesthesia Anesthesia Type: MAC Risk / Benefits Reviewed With: PT / POA / Parent / Guardian, Accepts Plan and Informed Consent Obtained History Surgery Operation Date: 12/10/18 14:00 Proposed Procedures p Esophagogastroduodenoscopy Connie Lopez Case, Operation Date: 12/12/18 08:30 Proposed Procedures p Colonoscopy Dr. Lyle Lopez Case, DO Height/Weight Height: 5 ft 9 in Weight: 86.6 kg Allergies Allergy/AdvReac Type Severity Reaction Status Date / Time No Known Allergies Allergy Unverified 12/10/18 00:15 Medications Home Medications Medication Instructions Recorded Confirmed Last Taken calcium polycarbophil [FiberCon] 1,250 mg PO QAM 01/10/18 12/10/18 01/10/18 cetyl,stear.alcoh-prop gly-sls 1 applic TOPICAL BID 01/10/18 12/10/18 01/10/18 [Cetaphil] docusate sodium [Colace] 100 mg PO QAM 01/10/18 12/10/18 01/10/18 escitalopram oxalate [Lexapro] 30 mg PO HS 01/10/18 12/10/18 01/09/18 hydrochlorothiazide 25 mg PO QAM 01/10/18 12/10/18 01/10/18 pantoprazole 40 mg PO DAILY #20 tab 01/10/18 12/10/18 Unknown hydroxyzine pamoate 25 mg PO HS 12/10/18 12/10/18 Unknown meloxicam 7.5 mg PO BID 12/10/18 12/10/18 Unknown Active Medications Generic Name Dose Route Start Last Admin Trade Name Freq PRN Reason Stop Dose Admin Acetaminophen 650 mg 12/10/18 03:22 12/12/18 03:12 Tylenol PO 01/09/19 03:21 650 mg Q4H PRN Administration mild pain or fever Calcium Polycarbophil 1,250 mg 12/10/18 09:00 12/12/18 07:47 Fibercon PO 01/09/19 08:59 Not Given QAM SOCORRO Docusate Sodium 100 mg 12/10/18 09:00 12/12/18 07:46 Colace PO 01/09/19 08:59 Not Given QAM SOCORRO Escitalopram Oxalate 30 mg 12/10/18 01:52 12/11/18 21:48 Lexapro Tab PO 01/09/19 01:51 30 mg HS SOCORRO Administration Hydralazine HCl 10 mg 12/10/18 01:54 12/12/18 11:23 Hydralazine Hcl IV 01/09/19 01:53 10 mg Q4H PRN Administration Systolic BP > 160 or diastolic >95 Hydrochlorothiazide 25 mg 12/10/18 09:00 12/12/18 07:47 Hctz PO 01/09/19 08:59 Not Given QAM SOCORRO Hydroxyzine HCl 25 mg 12/10/18 01:52 12/11/18 21:48 Vistaril PO 01/09/19 01:51 25 mg HS SOCORRO Administration Lactated Ringer's 1,000 mls @ 125 mls/hr 12/12/18 10:30 12/12/18 11:11 Lr IV 01/11/19 10:29 125 mls/hr .Q8H SOCORRO Administration Multi-Ingredient Cream 1 appln 12/10/18 09:00 12/12/18 07:47 Hydrocerin TOP 01/09/19 08:59 Not Given BID SOCORRO Potassium Chloride 20 meq 12/10/18 09:00 12/12/18 14:07 Klor-Con M20 PO 01/09/19 08:59 Not Given TID SOCORRO NPO Date Last Intake of Fluids: 12/12/18 Time Last Intake of Fluids: 11:00 Date Last Intake of Solids: 12/09/18 Time Last Intake of Solids: 21:00 Last Intake of Solids Comment: crackers Past Medical History Medical History Anemia Constipation DJD (degenerative joint disease) of knee GERD (gastroesophageal reflux disease) HTN (hypertension) Hepatitis C No known health problems Exercise / Class Metabolic Activity II 4-5 Yardwork/Stairs/Walk up hill Past Family History Family History Other No significant family history Past Surgical History Surgical History History of esophagogastroduodenoscopy (EGD) Past Anesthesia History No Hx of Anesthesia Complications and No Family Hx of Anesthesia Complications History of PONV No Hx of PONV and No Hx of Motion Sickness Social History Smoking Status: Former smoker Hx Alcohol Use: No Hx Substance Use: Yes substance use type: marijuana Substance Use Type Other:: smoked PCP Last Used Substance Other:: over 4 years ago Physical Exam Vital Signs Last Vital Signs Temp 36.9 C 12/12/18 15:55 Pulse 91 H 12/12/18 15:55 Resp 20 12/12/18 15:55 BP 156/95 H 12/12/18 15:55 Pulse Ox 98 12/12/18 15:55 ENMT Mouth: no dentition abnormality Thyromental Distance: > or= 3.5 Finger Breadths Mallampati Class: II Neck normal visual inspection Respiratory normal respiratory effort Auscultation: lungs clear to auscultation bilaterally Cardiovascular Rate/Rhythm: regular rate and regular rhythm Psychiatric Orientation: alert Testing Laboratory Results 12/12/18 07:04 12/12/18 07:04 PT 11.9 Seconds (9.0-12.0) 12/09/18 23:03 INR 1.2 (0.9-1.1) H 12/09/18 23:03 APTT 23.1 Seconds (21.0-31.0) 12/09/18 23:03 Urine Color Yellow 12/09/18 23:00 Urine Appearance Clear (Clear) 12/09/18 23:00 Urine pH 6.0 (4.5-7.5) 12/09/18 23:00 Ur Specific [place] 1.007 (1.000-1.030) 12/09/18 23:00 Urine Protein Negative (Negative) 12/09/18 23:00 Urine Glucose (UA) Negative (Negative) 12/09/18 23:00 Urine Ketones Negative (Negative) 12/09/18 23:00 Urine Nitrite Negative (Negative) 12/09/18 23:00 Ur Leukocyte Esterase Negative (Negative) 12/09/18 23:00 Blood Type O Positive 12/09/18 23:03 Antibody Screen NEGATIVE 12/09/18 23:03
[2018-12-12] MEDS ORDERED: LIDOCAINE HCL 2% 2 ML VIAL/AMP(20MG/ML) INFIL ONE (16:11)
[2018-12-12] MEDS ORDERED: PROPOFOL IV EMULSION 10 MG/ML 20 ML VIAL IV ONE (16:11)
--- NOTE | 2018-12-12 16:53 | GI REPORT ---
Patient Name: Elissa Ennis Procedure Date: 12/12/2018 4:14 PM Date of : 1960 Admit Type: Inpatient Age: 57 Gender: Male Attending MD: Macho Alvarenga DO Procedure: Colonoscopy Providers: Macho Alvarenga DO Referring MD: Raman FIGUEROA Indications: Acute post hemorrhagic anemia Medicines: Monitored Anesthesia Care Complications: No immediate complications. Estimated Blood Loss: Estimated blood loss: none. Procedure: Pre-Anesthesia Assessment: - Prior to the procedure, a History and Physical was performed, and patient medications and allergies were reviewed. The patient's tolerance of previous anesthesia was also reviewed. The risks and benefits of the procedure and the sedation options and risks were discussed with the patient. All questions were answered, and informed consent was obtained. Prior Anticoagulants: The patient has taken no previous anticoagulant or antiplatelet agents. ASA Grade Assessment: III - A patient with severe systemic disease. After reviewing the risks and benefits, the patient was deemed in satisfactory condition to undergo the procedure. After I obtained informed consent, the scope was passed under direct vision. Throughout the procedure, the patient's blood pressure, pulse, and oxygen saturations were monitored continuously. The Colonoscope was introduced through the anus and advanced to the terminal ileum. The colonoscopy was performed without difficulty. The patient tolerated the procedure well. The quality of the bowel preparation was good. The terminal ileum, ileocecal valve, appendiceal orifice, and rectum were photographed. Findings: The perianal and digital rectal examinations were normal. The terminal ileum contained multiple three mm ulcers. No bleeding was present. Biopsies were taken with a cold forceps for histology. Non-bleeding internal hemorrhoids were found during retroflexion. The hemorrhoids were small. Impression: - Multiple ulcers in the terminal ileum. Biopsied. - Non-bleeding internal hemorrhoids. Recommendation: - Resume previous diet. - Continue present medications. - Repeat colonoscopy for surveillance based on pathology results. - Return to primary care physician as previously scheduled. Macho Alvarenga DO 12/12/2018 4:52:48 PM This report has been signed electronically. Note Initiated On: 12/12/2018 4:14 PM Number of Addenda: 0 I attest to the content of the Intraoperative Record and orders documented therein, exceptions below {[id number]}
--- NOTE | 2018-12-12 17:11 | Anesthesiology Progress Note ---
Date of Service December 12, 2018 Anesthesia Post Procedure Vital Signs Vital Signs: Temp Pulse Pulse Resp BP Pulse Ox Pulse Ox 12/12/18 17:05 89 16 151/93 H 100 12/12/18 16:50 92 H 14 117/63 98 12/12/18 15:55 36.9 C 91 H 20 156/95 H 98 12/12/18 15:19 36.9 C 90 23 139/90 99 12/12/18 11:54 151/73 H 12/12/18 11:04 37 C 82 16 170/92 H 96 12/12/18 08:33 82 124/93 12/12/18 07:59 36.8 C 78 20 171/88 H 98 12/12/18 03:22 37.0 C 95 H 18 152/95 H 99 12/12/18 03:00 95 12/12/18 01:00 71 12/11/18 23:27 36.8 C 71 18 169/105 H 99 12/11/18 19:55 36.9 C 72 19 173/97 H 94 Transfer of Care Handoff Completed per policy Notes Mental Status: alert / awake / arousable Patient Amnestic to Procedure: Yes Nausea / Vomiting: adequately controlled Pain: adequately controlled Airway Patency, RR, SpO2: stable & adequate BP & HR: stable & adequate Hydration State: stable & adequate Anesthetic Complications: no major complications apparent
[2018-12-12] MEDS ORDERED: HydrALAZINE HCL 20 MG/ML VIAL IV PRN (18:46)
[2018-12-12] MEDS: ESCITALOPRAM OXALATE 10 MG TAB PO SCH (19:49)
[2018-12-12] MEDS ORDERED: AMLODIPINE BESYLATE 5 MG TAB PO SCH (21:00)
[2018-12-13 06:55] LABS: Hematocrit (blood only) 30.1 % (42-52); Hemoglobin 8.7 g/dL (14.0-18.0); Mean Corpuscular Hemoglobin 20.8 pg (25-34); Mean Corpuscular Hgb Conc 28.9 g/dL (32-36); Nucleated RBC # (auto) 0.17 K/uL (0-0); Nucleated RBC % (auto) 2.4 %; Platelet Count 506 K/uL (130-400); Red Blood Count 4.18 M/uL (4.7-6.1); White Blood Count 7.24 K/uL (4.8-10.8)
[2018-12-13 07:08] LABS: BUN Creatinine Ratio 9.4 (10-20); Bilirubin Direct 0.2 mg/dl (0-0.2); Calcium 8.2 mg/dl (8.5-10.1); Creatinine Clr Calc Pharmacy 71.1 ml/min; Est GFR (African American) 81.1; Potassium 3.6 mmol/L (3.5-5.1)
[2018-12-13 07:10] LABS: Bilirubin,Total 0.8 mg/dl (0.2-1); Total Protein 6.5 gm/dl (6.4-8.2)
[2018-12-13] MEDS: LACTATED RINGER'S 1,000 ML IV SCH (07:35)
[2018-12-13] MEDS: DOCUSATE SODIUM 100 MG CAP PO SCH (08:31)
[2018-12-13] MEDS: EUCERIN CR 120 GM JAR TOP SCH (08:32)
[2018-12-13] MEDS: POTASSIUM CHLORIDE 20 MEQ TABCR PO SCH ×2 (08:32→13:34)
[2018-12-13] MEDS: CALCIUM POLYCARBOPHIL 625MG TAB PO SCH (08:32)
[2018-12-13] MEDS: hydroCHLOROthiazide 25 MG TAB PO SCH (08:32)
[2018-12-13] MEDS ORDERED: lisinopriL 10 MG TAB PO SCH (09:00)
[2018-12-13] MEDS ORDERED: lisinopriL 20 MG TAB PO SCH (09:00)
--- NOTE | 2018-12-13 09:51 | Gastroenterology Progress Note ---
Date of Service December 13, 2018 Assessment & Plan (1) Iron deficiency anemia: (2) Ulcer of ileum: Diff dx: NSAID vs Crohn's vs other. 1. Await pending pathology. 2. Avoid NSAIDs. 3. Continue supportive care. 4. Stable for discharge from GI perspective once cleared by primary team. 5. Outpatient follow up in our office in 1-2 weeks. Subjective Patient reports he is feeling well today and is anticipating discharge. Colonoscopy yesterday with findings of multiple TI ulcers. Histology is pending. Denies any abdominal pain, nausea or vomiting, diarrhea, constipation, or overt GIB symptoms. H&H remains stable. Review of Systems Constitutional: no problem reported Respiratory: no problem reported Cardiovascular: no problem reported Gastrointestinal: as per Subjective / HPI Psychiatric: no problem reported Physical Exam Constitutional: WD/WN, vitals as above Respiratory: normal respiratory effort, lungs clear to auscultation Cardiovascular: RRR, no murmur, no edema Gastrointestinal (Abdomen): normal bowel sounds, soft, nontender, no hepatosplenomegaly Psychiatric: A+Ox3, euthymic affect Results & Data Vital Signs (Past 12 Hours) Vital Signs Temp Pulse Resp BP Pulse Ox 12/13/18 07:35 36.8 C 92 H 16 142/98 H 98 12/13/18 03:41 37.0 C 93 H 18 146/89 H 98 12/13/18 00:00 37.0 C 80 18 130/76 98 Laboratory Results Abnormal lab results 12/13/18 12/13/18 Range/Units 06:16 06:16 RBC 4.18 L (4.7-6.1) M/uL Hgb 8.7 L (14.0-18.0) g/dL Hct 30.1 L (42-52) % MCV 72.0 L (80-100) fL MCH 20.8 L (25-34) pg MCHC 28.9 L (32-36) g/dL Plt Count 506 H (130-400) K/uL Absolute Nucleated RBC 0.17 H (0-0) K/uL Chloride 109 H (98-107) mmol/L BUN/Creatinine Ratio 9.4 L (10-20) Glucose 106 H (70-99) mg/dl Calcium 8.2 L (8.5-10.1) mg/dl AST 66 H (15-37) U/L Albumin 3.0 L (3.4-5.0) gm/dl PG Care Time/CCT Total # of Minutes Spent Total Time Spent with Patient: Total time spent is greater than 50% in coordination of care (as documented) at patient's floor/unit and/or counseling patient: (1) Iron deficiency anemia Iron deficiency anemia type: unspecified iron deficiency Qualified Code(s): D50.9 - Iron deficiency anemia, unspecified
--- NOTE | 2018-12-13 12:03 | Discharge Summary ---
Date of Service December 13, 2018 Admission HPI Per Admitting Provider 57 y/o male presented to the ED with a 3 day history of bright red blood per rectum. Although the notes from the long-term mention black stools and exertional SOB, the patient declines having these. He does use Mobic twice daily for joint pains. No F/C, cough, chest pain, SOB, weakness, N/V/D, hematemesis, or epistaxis. No trauma. No new medications. Primary Care Provider: [facility] Admission Exam Per Admitting Provider General- adult male, NAD Head- atraumatic Eyes- PERRL, EOMI, anicteric ENT- oropharynx clear Neck- supple, no JVD, no adenopathy, no thyromegaly. Lungs- clear to auscultation b/l no R/R/W. Heart- regular rhythm; no murmur, no gallop, no rub appreciated Abdomen- normal bowel sounds, soft, nontender. 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 Skin- warm & dry Principal Diagnosis Severe acute on chronic gastrointestinal blood loss anemia Iron deficient anemia Hypertensive urgency Hypokalemia Elevated AST Discharge Exam Constitutional well developed and well nourished; no acute distress Eyes + anicteric sclerae ENMT external ear and nose normal, oropharynx normal Respiratory normal respiratory effort, lungs clear to auscultation Cardiovascular Rate/Rhythm: regular rate and regular rhythm Heart Sounds: normal S1 and normal S2; no murmur Vessels: no JVD Extremities: no edema Gastrointestinal (Abdomen) normal bowel sounds, soft, nontender, no hepatosplenomegaly Musculoskeletal no cyanosis or clubbing, extremities motor strength 5/5 (calves SNT) Neurologic awake; no focal motor deficits Motor/Sensory: no tremor and no pronator drift Psychiatric Orientation: alert and oriented x 3 Discharge Data Allergies Allergy/AdvReac Type Severity Reaction Status Date / Time No Known Allergies Allergy Unverified 12/10/18 00:15 Consultations 12/10/18 00:33 ED Decision to Admit Stat 12/10/18 03:22 Consult Gastroenterology Routine Procedures Performed Operation Date: 12/10/18 14:00 Actual Procedures p Esophagogastroduodenoscopy(Not Applicable) - Macho Lopez Case, DO Operation Date: 12/12/18 08:30 Actual Procedures p Colonoscopy Biopsy Cytology - Macho Wendi. Case, DO Hospital Course (1) Blood per rectum: (2) Acute blood loss anemia: Diagnosed with severe acute on chronic gastrointestinal blood loss anemia. Symptomatic with shortness of breath on exertion. S/p 4 PRBC transfusions. Hgb improved from 3.8 to 8.7. EGD was normal. Colonoscopy showed ulcers in the terminal ileum which were biopsied with pathology pending at this time and you will follow up with gastroenterology in 1-2 weeks for results. This is likely the cause of your bleeding, possibly caused by meloxicam use and advise discontinuing this. Recommend repeating blood count in approximately 1 week (see above) for monitoring. Also given IV Venofer 200mg x1 dose, recommend 800mg additional of elemental iron transfusions to be arranged as outpatient, formulation and scheduling as per PCP. No oral supplementation recommend at this time in order to monitor for black bowel movements. (3) Iron deficiency anemia: as above (4) HTN (hypertension): Consistently elevated blood pressures therefore started on lisinopril. Repeat renal profile in 1 week as also monitoring hypokalemia (see below). (5) Abnormal AST and ALT: Mild AST elevation. Repeat LFTs in AM. Known chronic Hep C. Recommend outpatient follow up. Plt unremarkable. No liver abnormalities on CT A/P. (6) Hypokalemia: Secondary to HCTZ, GI bleed Consider primary aldosteronism if unable to control BP on three meds. No adrenal incidentaloma on CT. Continue supplements as needed, added ACEi to HTN meds to assist. KCl 20 meq daily prescribed on discharge. Recommend close monitoring with repeat BMP in 1 week. (7) Mood disorder: cont home meds Total Time Total Time Spent Total Time Spent (In Minutes): 45 Total Time Includes: Examination of the Patient, Discharge Planning, Medication Reconciliation and Communication With Other Providers Discharge Plan Discharge Items [facility]position[facility] Reason For Visit: ANEMIA Discharge Diagnosis: Severe acute on chronic gastrointestinal blood loss anemia Iron deficient anemia Hypertensive urgency Hypokalemia Elevated AST Activity: Resume your previous activity Non-emergency contact: Primary Care Provider Call non-emergency contact if: you have any medication questions and your symptoms worsen Follow-up/Referrals: Macho Alvarenga, DO [Physician] - (1-2 weeks) Raman FIGUEROA [Primary Care Provider] - Diet: Regular Ambulatory Orders: Basic Metabolic Panel (Routine) Timeframe: 1 Week Location: Determined by Patient Ordered By: Jerad Timmons Complete Blood Count no Diff (Routine) Timeframe: 1 Week Location: Determined by Patient Ordered By: Jerad Timmons Addtl Attending Provider Instructions: You were diagnosed with severe acute on chronic gastrointestinal blood loss anemia. This is likely the cause of your shortness of breath on exertion. For this you were transfused 4 units of packed red blood cells. Your hemoglobin improved from 3.8 to 8.7. EGD was normal. Colonoscopy showed ulcers in the term inal ileum which were biopsied with pathology pending at this time and you will follow up with gastroenterology in 1-2 weeks for results. This is likely the cause of your bleeding, possibly caused by meloxicam use and advise discontinuing this. Recommend repeating blood count in approximately 1 week (see above) for monitoring. You were also given IV Venofer 200mg x1 dose, recommend 800mg additional of elemental iron transfusions to be arranged as outpatient, formulation and scheduling as per PCP. No oral supplementation recommend at this time in order to monitor for black bowel movements. Hypertension - given consistently elevated blood pressures you were started on lisinopril for this. Repeat renal profile in 1 week as also monitoring hypokalemia (see below). Low potassium (hyperkalemia) 3.1 - resolved on discharge with KCl 20 meq PO TID given during inpatient stay. Likely due to GI losses with concurrent hydrochlorothiazide use. Lisinopril should complement HCTZ regarding potassium loss and the GI losses have hopefully resolved. KCl 20 meq daily prescribed on discharge. Recommend close monitoring with repeat BMP in 1 week. Elevated AST - suspect secondary to chronic hepatitis C. Continue outpatient management/monitoring of this. Arthritis - recommend against NSAID use at least in the short term. Consider acetaminophen or tramadol if required. Pending Studies at Discharge: Yes (Pathology of terminal ileum biopsy) Stand-Alone Forms: My [facility] Skilled Items Patient informed of condition?: Yes Discharge Level of Care: Other Communicable Disease: No Discharge Prognosis: Stable Lines: None Urinary Catheter: No Medications and DC Order Prescriptions: New lisinopril 10 mg Tablet 10 mg PO QAM 30 Days Qty: 30 RF: 0 potassium chloride [Klor-Con M20] 20 mEq Tablet,Er Particles/Crystals 20 meq PO DAILY 14 Days Qty: 14 RF: 0 Continued calcium polycarbophil [FiberCon] 625 mg Tablet 1,250 mg PO QAM RF: 0 docusate sodium [Colace] 100 mg Capsule 100 mg PO QAM RF: 0 hydrochlorothiazide 25 mg Tablet 25 mg PO QAM RF: 0 escitalopram oxalate [Lexapro] 10 mg Tablet 30 mg PO HS RF: 0 Cetaphil Cream 1 applic TOPICAL BID RF: 0 pantoprazole 40 mg tablet,delayed release (DR/EC) 40 mg PO DAILY Qty: 20 RF: 0 hydroxyzine pamoate 25 mg Capsule 25 mg PO HS RF: 0 Discontinued meloxicam 7.5 mg Tablet 7.5 mg PO BID RF: 0 Discharge Orders: Discharge Order (Routine); Ordered 12/13/18 Ordered By: Jerad Timmons Admission Data Admit Date/Time: 12/10/18 01:52 Attending Provider: Jerad Timmons Admit Provider: Gm Díaz Primary Care Provider: Raman FIGUEROA Other Providers: Gm Díaz ; Macho Alvarenga Other Interventions: Discharge Summary Assessment (RN) Last Done: 12/13/18 12:22 DC Date/Time DO NOT enter until pt leaves facility: 12/13/18 15:49
== END 2018-12-13 15:49 | DRG 812 ==
LOC: ED 22:46 → 2E 12-10 01:52 → SUATTDRO 12-10 01:52 → 2E 12-10 02:43